=== PATIENT | male | born 1965 | race Caucasian/White ===

== ENCOUNTER 2017-09-05 20:52 | Emergency (ER) | payer SELFPAY ==
[~2017-09-05] VITALS: Ht 177.8 cm; Wt 82.0 kg
[2017-09-05 21:09] VITALS: BP 164/98
== END 2017-09-05 22:11 | disposition left against medical advice (07) ==
LOC: ED 22:05
DX: F10.129 Alcohol abuse with intoxication, unspecified (principal)
CPT/HCPCS: 99283